=== PATIENT | male | born 1990 | race Caucasian/White ===

== ENCOUNTER 2023-08-15 10:59 | Emergency (ER) | payer MEDICAID ==
[~2023-08-15] VITALS: Ht 177.8 cm; Wt 73.0 kg
[2023-08-15 11:07] VITALS: BP 140/80; PULSE 130; RESP 20; TEMP 99.2; O2SAT 98
[2023-08-15] MEDS ORDERED: LORAZEPAM 1MG TABLET PO ONE (12:45)
[2023-08-15] MEDS ORDERED: LORAZEPAM 1MG TABLET PO NR (13:30)
[2023-08-15] MEDS ORDERED: CHLO25CA10 MT (14:32)
== END 2023-08-15 14:53 | disposition home or self-care (01) ==
LOC: ER 10:59
DX: F41.9 Anxiety disorder, unspecified (principal); F10.239 Alcohol dependence with withdrawal, unspecified; F10.229 Alcohol dependence with intoxication, unspecified; Y90.9 Presence of alcohol in blood, level not specified
CPT/HCPCS: 71045; 99283

== ENCOUNTER 2023-08-16 00:51 | Emergency (ER) | payer MEDICAID ==
[~2023-08-16] VITALS: Ht 175.3 cm; Wt 70.0 kg
[~2023-08-16 00:51] MED LIST: CHLO25CA10 MT
[2023-08-16 00:59] VITALS: BP 150/93; PULSE 80; RESP 16; TEMP 98.2; O2SAT 98
== END 2023-08-16 05:01 | disposition home or self-care (01) ==
LOC: ER 01:12
DX: R10.9 Unspecified abdominal pain (principal); Z00.00 Encounter for general adult medical examination without abnormal findings
CPT/HCPCS: 99283